=== PATIENT | female | born 1975 | race Caucasian/White ===

== ENCOUNTER 2020-01-01 01:14 | Emergency (ER) | payer BC ==
[~2020-01-01] VITALS: Ht 152.4 cm; Wt 52.3 kg
[~2020-01-01 01:14] MED LIST: CETI-90 PO
[2020-01-01] MEDS ORDERED: ketorolac trometh. 30mg/ml inj. IV ONE (01:30)
[2020-01-01 01:41] LABS: ALBUMIN 3.7 G/DL (3.4-5.0); ANION GAP 6 (8-16); BASOPHILS # (AUTO) 0.2 X10'3 (0-0.2); BASOPHILS % (AUTO) 1.4 % (0-1); BLOOD UREA NITROGEN 15 MG/DL (7-18); BUN/CREATININE RATIO 22.1 (6.6-38.0); CHLORIDE 103 MMOL/L (99-107); CREATININE 0.68 MG/DL (0.40-0.90); EOSINOPHILS # (AUTO) 0.2 X10'3 (0-0.9); EOSINOPHILS % (AUTO) 1.3 % (0-6); GLUCOSE 105 MG/DL (70-104); HEMATOCRIT 30.9 % (35.0-45.0); HEMOGLOBIN 10.6 g/dl (12.0-16.0); LYMPHOCYTES # (AUTO) 1.4 X10'3 (1.1-4.8); LYMPHOCYTES % (AUTO) 10.6 % (21-51); MEAN CORPUSCULAR HEMOGLOBIN 30.7 PG (27.0-31.0); MEAN CORPUSCULAR HGB CONC 34.2 g/dL (33.0-36.5); MEAN PLATELET VOLUME 7.6 FL (7.4-10.4); MONOCYTES # (AUTO) 0.6 X10'3 (0-0.9); MONOCYTES % (AUTO) 4.2 % (2-12); NEUTROPHILS % (AUTO) 82.5 % (42-75); PLATELET COUNT 318 X10'3 (140-440); POTASSIUM 3.5 MMOL/L (3.5-5.1); RED BLOOD COUNT 3.43 X10'6 (4.20-5.60); RED CELL DISTRIBUTION WIDTH 13.6 % (11.5-14.5); SODIUM 131 MMOL/L (135-145); TOTAL CARBON DIOXIDE 21.8 MMOL/L (24-32); WHITE BLOOD COUNT 13.3 X10'3 (4.5-11.0); eGFR > 90 ML/MIN
[2020-01-01 01:46] LABS: HCG SERUM QL POSITIVE
--- NOTE | 2020-01-01 01:49 | NUR ---
ASSISTED LENIN JUAREZ WITH VAGINAL EXAM
[2020-01-01 02:35] LABS: BETA HCG,QUANTITATIVE 3977 mIU/ml
[2020-01-01 03:45] VITALS: BP 107/71
[2020-01-01 03:54] LABS: CLARITY,URINE CLEAR (Clear); COLOR,URINE YELLOW (Yellow); GLUCOSE, URINE NEGATIVE (Neg); KETONES,URINE TRACE mg/dl (Neg); LEUKOCYTE ESTERASE ,URINE TRACE (Neg); NITRITES, URINE POSITIVE (Neg); OCCULT BLOOD,URINE LARGE (Neg); PROTEIN,URINE >=300 mg/dl (Neg); UROBILINOGEN,URINE 0.2 E.U/dL (0.2-1.0)
[2020-01-01 04:03] LABS: UA COLLECTION TYPE NON-SPECIFIED
[2020-01-01 04:05] LABS: RBC,URINE TNTC /HPF (0-2); SQUAMOUS EPITHELIAL CELL,UR MODERATE /LPF (FEW)
[2020-01-01 04:09] LABS: BACTERIA,URINE 1+ /HPF (Neg)
== END 2020-01-01 04:22 | disposition home or self-care (01) ==
LOC: ER 01:14
DX: O03.9 Complete or unspecified spontaneous abortion without complication (principal); Z72.89 Other problems related to lifestyle; Z88.0 Allergy status to penicillin; Z88.2 Allergy status to sulfonamides; Z79.899 Other long term (current) drug therapy
CPT/HCPCS: 36415; 76856; 80048; 81001; 84702; 84703; 85025; 86900; 86901; 87088; 93976; 99284

== ENCOUNTER 2020-08-19 10:22 | Day surgery (SDC) | payer BC ==
[2020-08-12 11:40] LABS: BASOPHILS # (AUTO) 0.1 X10'3 (0-0.2); EOSINOPHILS % (AUTO) 0.5 % (0-6); LYMPHOCYTES # (AUTO) 1.3 X10'3 (1.1-4.8); MEAN CORPUSCULAR HEMOGLOBIN 31.2 PG (27.0-31.0); MEAN CORPUSCULAR VOLUME 92.4 FL (78-98); MONOCYTES # (AUTO) 0.5 X10'3 (0-0.9); NEUTROPHILS # (AUTO) 3.2 X10'3 (1.8-7.7)
[2020-08-12 11:42] LABS: LYMPHOCYTES % (AUTO) 25.9 % (21-51); MEAN CORPUSCULAR HGB CONC 33.7 g/dL (33.0-36.5); MEAN PLATELET VOLUME 7.7 FL (7.4-10.4); MONOCYTES % (AUTO) 9.6 % (2-12); PRE OP HEMATOCRIT 39.8 % (35.0-45.0); PRE OP HEMOGLOBIN 13.4 g/dL (12.0-16.0); PRE OP PLATELET COUNT 346 X10'3 (140-440); RED BLOOD COUNT 4.31 X10'6 (4.20-5.60)
[2020-08-12 11:55] LABS: ALBUMIN 3.8 G/DL (3.4-5.0); ALKALINE PHOSPHATASE 50 IU/L (46-116); BLOOD UREA NITROGEN 12 MG/DL (7-18); BUN/CREATININE RATIO 18.5 (6.6-38.0); CALCIUM 8.7 MG/DL (8.5-10.1); CHLORIDE 104 MMOL/L (99-107); CREATININE 0.65 MG/DL (0.40-0.90); PRE OP ALT 27 U/L (30-65); PRE OP ANION GAP 7 (8-16); PRE OP AST 22 U/L (10-37); PRE OP BILIRUB, TOTAL 0.5 MG/DL (0.0-1.0); PRE OP GLUCOSE 100 MG/DL (70-104); PRE OP POTASSIUM 3.9 MMOL/L (3.4-5.1); PRE OP SODIUM 138 MMOL/L (135-145); TOTAL CARBON DIOXIDE 27.3 MMOL/L (24-32); TOTAL PROTEIN 7.5 G/DL (6.4-8.2); eGFR > 90 ML/MIN
[2020-08-12 12:05] LABS: HCG SERUM QL NEGATIVE
[2020-08-19] VITALS (20 sets, daily range): BP systolic 93–147; BP diastolic 60–106
[~2020-08-19] VITALS: Ht 152.4 cm; Wt 55.9 kg
[~2020-08-19 10:22] MED LIST changes: -CETI-90 PO; +FLUT16SP2 BOTHNARES; +GENTAMICIN IV ONE; +LORA10TA65 PO; +NORMAL SALINE IV ONE; +clindamycin-Cleocin 900mg/D5W 50 ML IV ONE; +famotidine 20mg tablet PO ONE
[2020-08-19] MEDS: ringers solution, lacted 1,000 ML IV SCH ×4 (10:58→23:36)
[2020-08-19 11:56] LABS: CLARITY,URINE CLEAR (Clear); COLOR,URINE YELLOW (Yellow); GLUCOSE, URINE NEGATIVE (Neg); KETONES,URINE NEGATIVE (Neg); LEUKOCYTE ESTERASE ,URINE NEGATIVE (Neg); NITRITES, URINE NEGATIVE (Neg); OCCULT BLOOD,URINE NEGATIVE (Neg); PROTEIN,URINE NEGATIVE (Neg); UROBILINOGEN,URINE 0.2 E.U/dL (0.2-1.0)
[2020-08-19 12:13] LABS: UA COLLECTION TYPE CLN CATCH MIDSTREAM
[2020-08-19] MEDS ORDERED: BUPIVAcaine HCl 0.25%/EPInephrine 1:200,000 inj. 10 ML VIAL ONE (12:27)
[2020-08-19] MEDS ORDERED: BUPIVAcaine/PF 2.5 mg/ml (0.25%) 30ml vial ONE (12:27)
[2020-08-19] MEDS ORDERED: vasoPRESSIN 20 units/ml inj. ONE (12:28)
[2020-08-19] MEDS ORDERED: neomy sulf/polymyxin B sulf. GU irrigation 1ml amp IR ONE (12:28)
[2020-08-19] MEDS ORDERED: scopolamine 1mg/72 hr patch TD ONE (12:35)
[2020-08-19] MEDS ORDERED: sevoflurane 250ml liquid IH ONE (12:45)
--- NOTE | 2020-08-19 12:46 | NUR ---
SCAOPALAMINE PATCH IN [facility] WOULD NOT SCAN APPROPRIATELY.
[2020-08-19] MEDS ORDERED: midazolam 1 mg/ML 2ml injection ONE (12:52)
[2020-08-19] MEDS ORDERED: propofol inj 20 ML IV ONE (13:21)
[2020-08-19] MEDS ORDERED: fentaNYL /PF 50mcg/ml 5ml ampule ONE (13:21)
[2020-08-19] MEDS ORDERED: LIDOcaine 2% (20mg/ml) 5ml vial ONE (13:21)
[2020-08-19] MEDS ORDERED: rocuronium 10mg/ml inj IV ONE (13:21)
[2020-08-19] MEDS ORDERED: dexamethasone sod phosphate 4mg/ml inj. ONE (13:26)
[2020-08-19] MEDS ORDERED: ondansetron/PF 4mg/2ml inj ONE (13:26)
[2020-08-19] MEDS ORDERED: 0.9 % SODIUM CHLORIDE 10 ML VIAL ONE (13:38)
[2020-08-19] MEDS ORDERED: ePHEDrine 50MG/ML INJ. ONE (13:38)
[2020-08-19] MEDS ORDERED: proCHLORperazine 10 MG/2 ml inj IV PRN ×2 (14:05→15:00)
[2020-08-19] MEDS ORDERED: ondansetron/PF 4mg/2ml inj IV PRN ×3 (14:05→15:00)
[2020-08-19] MEDS ORDERED: morphine 4 MG/ML inj SYRINge IV PRN ×2 (14:05→15:00)
[2020-08-19] MEDS ORDERED: ringers solution, lacted 1,000 ML IV SCH ×2 (14:05→15:00)
[2020-08-19] MEDS ORDERED: hydrALAZINE 20mg/ml inj. IV PRN ×2 (14:05→15:00)
[2020-08-19] MEDS ORDERED: labetalol 20mg/4ml (5mg/ml) syringe IV PRN ×2 (14:05→15:00)
[2020-08-19] MEDS ORDERED: morphine 2 MG/ML inj. syringe IV PRN ×2 (14:05→15:00)
[2020-08-19] MEDS ORDERED: acetaminophen 1,000mg/100ml IV 100 ML IV PRN ×2 (14:05→15:00)
[2020-08-19] MEDS ORDERED: meperidine/PF 25mg/ml syringe IV PRN ×6 (14:05→15:00)
[2020-08-19] MEDS ORDERED: neostigmine methylsulfate 1 MG/ML 10ml vial ONE (14:39)
[2020-08-19] MEDS ORDERED: glycopyrrolate 0.2mg/ml inj ONE (14:39)
[2020-08-19] MEDS ORDERED: LORazepam 1 MG tablet PO PRN (14:55)
[2020-08-19] MEDS ORDERED: temazepam 15mg capsule PO PRN (14:55)
[2020-08-19] MEDS ORDERED: HYDROcodone/acetaminophen 10/325mg tab PO PRN (14:55)
[2020-08-19] MEDS ORDERED: ketorolac trometh. 30mg/ml inj. IV PRN (14:55)
[2020-08-19] MEDS ORDERED: diphenhydrAMINE 50 mg/ml inj IV PRN (14:55)
[2020-08-19] MEDS ORDERED: magnesium hydroxide 30ml (MOM) UD suspension PO PRN (14:55)
[2020-08-19] MEDS ORDERED: metoclopramide 5 mg/ml inj IV PRN (14:55)
[2020-08-19] MEDS ORDERED: LORazepam 2 mg/ml vial IV PRN (14:55)
[2020-08-19] MEDS ORDERED: normal saline 500ml IV soln 500 ML IV PRN (14:55)
--- NOTE | 2020-08-19 14:59 | NUR ---
Received from OR via SURGICAL BED , accompanied by Anesthesiologist JET and report given by Anesthesiolgist. PATIENT WITH 20G PIV IN LEFT URE RUNNING LR AT 100. PATIENT WITH 3 ABDOMINAL LAP SITES THAT ARE CDI. VSS. PATIENT WITH CLEAR URINE PRESENT IN CATHETER. SCDS DONNED. VSS. ELINA PAD IN PLACE. Addendum: 08/19/20 at 1512 by Davonte Preciado RN, RN Amended: Links added.
--- NOTE | 2020-08-19 15:58 | NUR ---
Patient in room . I have received report from TRAM Arauz and had the opportunity to ask questions and assume patient care waiting for patient to arrive to room 4024b.
--- NOTE | 2020-08-19 15:59 | NUR ---
CARE TURNED OVER TO TRAM ALFARO WHO WAS PRESENT TO ASSESS AND ACCEPT PATIENT IN ROOM 4024B. ONE BAG OF BELONGINGS SENT WITH PATIENT. Addendum: 08/19/20 at 1622 by Davonte Mazariegos - TRAM UGALDE Amended: Links added.
--- NOTE | 2020-08-19 16:16 | NUR ---
Received patient to room 4024B via bed accompanied by TRAM Arauz. Patient A&O on RA c/o abd and bladder discomfort as well as right shoulder. Per patient and TRAM Arauz villela catheter causing discomfort and pain. Patient requesting to have villela catheter removed as she feels like she cannot "relieve" herself. Davonte stated he will inform Dr. Foley. When assessing patient villela catheter was secured in stat lock but had been twisted upside down pinched off. Villela catheter adjusted and secured in villela catheter stat lock correctly. Patient has x3 lap sites with dermabond cdi, no drainage on slava pad. Post op vitals initiated and VSS. Oriented patient to room and call light. Call light placed within patient's reach and bed is low and locked. Will continue to monitor.
--- NOTE | 2020-08-19 16:24 | NUR ---
Received call back from TRAM Arauz that Dr. Og mclaughlin for tika to be dc and straight mike PRN.
--- NOTE | 2020-08-19 16:40 | NUR ---
200ml urine in villela catheter drainage bag drained. Villela catheter dc'd with no issues. Patient tolerated well.
--- NOTE | 2020-08-19 18:24 | NUR ---
Problems reprioritized. Patient report given, questions answered & plan of care reviewed with TRAM Ritter.
--- NOTE | 2020-08-19 18:37 | NUR ---
Patient in room ORTHO 4024. I have received report from Celi UGALDE and had the opportunity to ask questions and assume patient care.
[2020-08-19] MEDS: docusate sod 100mg capsule PO SCH (19:47)
[2020-08-19] MEDS: HYDROcodone/acetaminophen 10/325mg tab PO PRN (20:29)
[2020-08-20 02:00] VITALS: BP 103/75
[2020-08-20] MEDS: HYDROcodone/acetaminophen 10/325mg tab PO PRN ×2 (03:10→10:06)
[2020-08-20 06:00] VITALS: BP 116/67
[2020-08-20 06:06] LABS: BASOPHILS % (AUTO) 0 % (0-1); EOSINOPHILS % (AUTO) 0 % (0-6); HEMATOCRIT 33.8 % (35.0-45.0); HEMOGLOBIN 11.5 g/dl (12.0-16.0); LYMPHOCYTES # (AUTO) 0.7 X10'3 (1.1-4.8); LYMPHOCYTES % (AUTO) 5.7 % (21-51); MEAN CORPUSCULAR HEMOGLOBIN 31.5 PG (27.0-31.0); MEAN CORPUSCULAR VOLUME 92.6 FL (78-98); MEAN PLATELET VOLUME 8.5 FL (7.4-10.4); MONOCYTES # (AUTO) 0.8 X10'3 (0-0.9); MONOCYTES % (AUTO) 6.1 % (2-12); NEUTROPHILS # (AUTO) 11.6 X10'3 (1.8-7.7); NEUTROPHILS % (AUTO) 88.2 % (42-75); PLATELET COUNT 336 X10'3 (140-440); RED BLOOD COUNT 3.65 X10'6 (4.20-5.60); RED CELL DISTRIBUTION WIDTH 12.5 % (11.5-14.5); WHITE BLOOD COUNT 13.1 X10'3 (4.5-11.0)
[2020-08-20 06:17] LABS: ALBUMIN 3.5 G/DL (3.4-5.0); ANION GAP 11 (8-16); BLOOD UREA NITROGEN 8 MG/DL (7-18); BUN/CREATININE RATIO 8.5 (6.6-38.0); CALCIUM 8.2 MG/DL (8.5-10.1); CHLORIDE 103 MMOL/L (99-107); CREATININE 0.94 MG/DL (0.40-0.90); GLUCOSE 118 MG/DL (70-104); POTASSIUM 3.9 MMOL/L (3.5-5.1); SODIUM 139 MMOL/L (135-145); TOTAL CARBON DIOXIDE 25.2 MMOL/L (24-32); eGFR 64 ML/MIN
--- NOTE | 2020-08-20 06:26 | NUR ---
Problems reprioritized. Patient report given, questions answered & plan of care reviewed with Ivet UGALDE.
--- NOTE | 2020-08-20 06:39 | NUR ---
Patient in room ORTHO 4024. I have received report from Riya UGALDE and had the opportunity to ask questions and assume patient care.
[2020-08-20] MEDS: ringers solution, lacted 1,000 ML IV SCH (06:55)
[2020-08-20] MEDS: docusate sod 100mg capsule PO SCH (07:57)
[2020-08-20] MEDS ORDERED: enoxaparin 40mg/0.4ml syringe SQ SCH (08:00)
[2020-08-20] MEDS ORDERED: fluticasone nasal spray 16GM bottle NS SCH (08:00)
[2020-08-20] MEDS ORDERED: loratadine 10mg tablet PO SCH (08:00)
[2020-08-20 10:00] VITALS: BP 133/50
[2020-08-20] MEDS ORDERED: simethicone 80mg chew tab PO ONE (10:25)
--- NOTE | 2020-08-20 12:50 | NUR ---
Pt Dc to home with lucia. Pt is A * O x4 and in mild gas pain. Pt verbalizes understanding of all DC orders and understands the importance of following up with Dr Foley within two weeks. Pt is in stable condition and is having no pain on abdomen as of right now. pain is gas pain only. Stringer is working well for her. Pt's iv cath intact,pt packed all of her belongings and wanted to walk out to the front. pt is doing well.
== END 2020-08-20 12:50 | disposition home or self-care (01) ==
LOC: ORTHO 4S 10:22 → PAS 10:22
PROVIDERS: ATTEND Obstetrics & Gynecology Obstetrics
DX: N87.9 Dysplasia of cervix uteri, unspecified (principal); D25.9 Leiomyoma of uterus, unspecified; Z79.899 Other long term (current) drug therapy; Z98.890 Other specified postprocedural states; Z88.2 Allergy status to sulfonamides; Z88.0 Allergy status to penicillin; Z72.89 Other problems related to lifestyle; Z87.891 Personal history of nicotine dependence
CPT/HCPCS: 36415; 58552; 71046; 80048; 80053; 81003; 82948; 84703; 85025; 86885; 86900; 86901; 93005; J0780; J1100; J1580; J1885; J2001; J2175; J2250; J2405; J2704; J2710; J3010; J3490; J7120; A4314; A4618; A7000; G0378; J1650

== ENCOUNTER 2022-09-12 12:49 | Emergency (ER) | payer BC ==
[~2022-09-12] VITALS: Ht 152.4 cm; Wt 59.0 kg
[~2022-09-12 12:49] MED LIST changes: -GENTAMICIN IV ONE; -NORMAL SALINE IV ONE; -clindamycin-Cleocin 900mg/D5W 50 ML IV ONE; -famotidine 20mg tablet PO ONE
[2022-09-12 13:35] LABS: URINE HCG NEGATIVE (NEG)
[2022-09-12 13:41] LABS: BASOPHILS # (AUTO) 0.1 X10'3 (0-0.2); BASOPHILS % (AUTO) 1.2 % (0-1); EOSINOPHILS % (AUTO) 0.1 % (0-6); HEMATOCRIT 37.8 % (35.0-45.0); HEMOGLOBIN 12.8 g/dl (12.0-16.0); LYMPHOCYTES # (AUTO) 1.4 X10'3 (1.1-4.8); LYMPHOCYTES % (AUTO) 17.4 % (21-51); MEAN CORPUSCULAR HEMOGLOBIN 31.4 PG (27.0-31.0); MEAN CORPUSCULAR HGB CONC 33.8 g/dL (33.0-36.5); MEAN CORPUSCULAR VOLUME 93.1 FL (78-98); MONOCYTES # (AUTO) 0.6 X10'3 (0-0.9); MONOCYTES % (AUTO) 7.1 % (2-12); NEUTROPHILS # (AUTO) 5.8 X10'3 (1.8-7.7); NEUTROPHILS % (AUTO) 74.2 % (42-75); PLATELET COUNT 342 X10'3 (140-440); RED BLOOD COUNT 4.06 X10'6 (4.20-5.60); RED CELL DISTRIBUTION WIDTH 13.8 % (11.5-14.5); WHITE BLOOD COUNT 7.8 X10'3 (4.5-11.0)
[2022-09-12 13:45] LABS: CLARITY,URINE CLEAR (Clear); COLOR,URINE YELLOW (Yellow); GLUCOSE, URINE NEGATIVE (Neg); KETONES,URINE 40 mg/dl (Neg); LEUKOCYTE ESTERASE ,URINE NEGATIVE (Neg); NITRITES, URINE NEGATIVE (Neg); OCCULT BLOOD,URINE NEGATIVE (Neg); PH,URINE 5.5 (4.8-8.0); PROTEIN,URINE NEGATIVE (Neg); UROBILINOGEN,URINE 0.2 E.U/dL (0.2-1.0)
[2022-09-12 13:49] LABS: UA COLLECTION TYPE CLN CATCH MIDSTREAM
[2022-09-12 13:51] LABS: ALANINE AMINOTRANSFERASE 50 U/L (12-78); ALBUMIN 3.9 G/DL (3.4-5.0); ALKALINE PHOSPHATASE 66 IU/L (46-116); ANION GAP 13 (8-16); ASPARTATE AMINO TRANSFERASE 38 U/L (10-37); BILIRUBIN,TOTAL 0.4 MG/DL (0.1-1.0); BLOOD UREA NITROGEN 15 MG/DL (7-18); BUN/CREATININE RATIO 19.5 (10.0-20.0); CALCIUM 9.3 MG/DL (8.5-10.1); CHLORIDE 96 MMOL/L (99-107); CREATININE 0.77 MG/DL (0.40-0.90); GLUCOSE 88 MG/DL (70-104); LIPASE 111 U/L (73-393); POTASSIUM 3.4 MMOL/L (3.5-5.1); SODIUM 132 MMOL/L (135-145); TOTAL CARBON DIOXIDE 23.2 MMOL/L (24-32); TOTAL PROTEIN 7.8 G/DL (6.4-8.2); eGFR 80 ML/MIN
--- NOTE | 2022-09-12 14:37 | NUR ---
ULTRASOUND AT BEDSIDE
[2022-09-12] MEDS ORDERED: DICY10CA88 PO (14:59)
[2022-09-12 15:17] VITALS: BP 163/100
== END 2022-09-12 15:18 | disposition home or self-care (01) ==
LOC: ER 12:50
DX: R10.31 Right lower quadrant pain (principal); R11.0 Nausea; Z90.49 Acquired absence of other specified parts of digestive tract; Z88.0 Allergy status to penicillin; Z88.2 Allergy status to sulfonamides; Z79.899 Other long term (current) drug therapy
CPT/HCPCS: 36415; 76856; 80053; 81003; 81025; 83690; 85025; 93976; 99284

== ENCOUNTER 2024-10-27 10:42 | Inpatient (IN) | payer BC ==
[~2024-10-27] VITALS: Ht 152.4 cm; Wt 52.7 kg
[2024-10-27 11:23] LABS: MEAN PLATELET VOLUME 8.4 FL (7.4-10.4); RED CELL DISTRIBUTION WIDTH 17.5 % (11.5-14.5)
[2024-10-27 11:25] LABS: URINE HCG NEGATIVE (NEG)
[2024-10-27 11:26] LABS: LEUKOCYTE ESTERASE ,URINE NEGATIVE (Neg); NITRITES, URINE NEGATIVE (Neg); OCCULT BLOOD,URINE MODERATE (Neg)
[2024-10-27 11:31] LABS: UA COLLECTION TYPE CLN CATCH MIDSTREAM
[2024-10-27 11:37] LABS: FINE GRANULAR CAST 0-3 /LPF (NEGATIVE); SQUAMOUS EPITHELIAL CELL,UR FEW /LPF (FEW)
[2024-10-27 11:37] LABS: CREATININE 1.01 MG/DL (0.40-0.90); eCRCL 48 ML/MIN; eGFR 58 ML/MIN
[2024-10-27 11:40] LABS: MUCUS STRANDS FEW /LPF (Neg)
[2024-10-27] MEDS: ondansetron/PF 4mg/2ml inj IV ONE (11:49)
[2024-10-27] MEDS: morphine 4 MG/ML inj SYRINge IV ONE (11:49)
[2024-10-27 12:17] LABS: TOTAL CARBON DIOXIDE 12.8 MMOL/L (24-32)
[2024-10-27] MEDS: potassium Cl 20 mEq SR tablet PO STA (13:33)
[2024-10-27] MEDS: POTASSIUM CHLORIDE 20 MEQ/15 ML oral solution PO ONE (13:41)
[2024-10-27] MEDS: potassium Cl 40MEQ/1/2NS 520ml 520 ML IV ONE (14:00)
--- NOTE | 2024-10-27 14:04 | Physician Documentation ---
History of Present Illness ~ Chief Complaint: Abdominal Pain Stated Complaint: N/V Time Seen by MD: 13:48 Primary Medical Doctor: NEHA Source: patient Mode of Arrival: Ambulatory Exam Limitations: no limitations HPI Chief Complaint: Nausea and vomiting, no bowel movement Caveat: None Independent Historians: None History of Present Illness: Patient is a 49-year-old woman who comes in complaining of nausea and vomiting that began Sunday. However patient states that she has not eaten anything since . Patient complains of severe nausea and vomiting and diffuse abdominal pain. She describes the pain as burning in the upper abdomen and cramps in the lower abdomen. Patient denies any bowel movement for 11 days since she had a colonoscopy. Patient denies any fever. Patient drinks alcohol daily and stopped cold turkey on Sunday. Review of systems: All systems were reviewed and are negative except for what is indicated in the history of present illness. Past Medical History: Alcoholism Past Surgical History: Colonoscopy 11 days ago Social History: Daily alcohol use, none since Sunday. Tobacco use, no drug use Medications: Reviewed as documented Nursing Notes Allergies: Reviewed as documented in Nursing Notes Medication Reconciliation Allergies: Coded Allergies: Penicillins (Verified Allergy, Unknown, 10/27/24) Sulfa (Sulfonamide Antibiotics) (Verified Allergy, Unknown, 10/27/24) buspirone (Verified Allergy, Unknown, 10/27/24) Scheduled Fluticasone Propionate (Flonase), 2 SPRAYS BOTHNARES DAILY, (Reported) Loratadine (Claritin), 1 TAB PO DAILY, (Reported) Past Medical History Past Medical History: *RENAL/* Past Surgical History: hysterectomy Other Past Family History: Mother: mitral valve prolapse Alcohol Use: Heavy Drug Use: none Lives with: Family Lives In: Home Review of Systems All Other Systems at this time: Reviewed and Negative ROS Patient denies any other acute symptoms other than above. All other systems are negative Physical Exam Vital Signs: RN Vital Signs have been reviewed: Yes, Temperature: 97.4, Source: Temporal, Heart Rate: 90, Respiratory Rate: 14, BP: 132/96, Pulse Oximetry: 97, Weight: 52.730 Oxygen Flow Rate: 0 Pulse Oximetry Reflects: adequate oxygenation Physical Exam General Appearance: Mild distress, acutely ill-appearing HEENT: Normal OP, dry oral mucosa, PERRL, EOMI Neck: supple, normal ROM, trachea midline Pulmonary: No respiratory distress, CTA, BS equal Cardiac: RRR, no murmur, rub or gallop, GI: nondistended, soft, mild diffuse tenderness, no right upper quadrant tenderness, normal bowel sounds, no guarding, no rebound Extremities: normal ROM, no swelling, non-tender Skin: intact, dry, warm, no rashes Neuro: AAOx3, speech is clear, no focal motor weakness Psych: normal affect, good eye contact, no apparent hallucination, normal speech Progress Results/Orders Results/Orders Orders - THEODORA REILYL MD Cult Urine + [facility] Ct (10/27/24 11:41) Potassium Cl 40meq/1/2ns 520ml ([place] (10/27/24 14:00) Page Hospitalist (10/27/24 13:56) Fill Out Med Reconciliation (10/27/24 13:56) Ct Abdomen Pelvis (10/27/24 14:30) Completed Orders - THEODORA REILLY MD Hcg, Ur Ql (10/27/24 10:51) Cbc/Diff (10/27/24 10:51) BMP (10/27/24 10:51) Lipase (10/27/24 10:51) CMP (10/27/24 10:51) Ua W/Microscopic, Cult If Ind (10/27/24 11:00) Morphine 4mg/Ml Inj. (Morphine Inj.) (10/27/24 11:45) Ondansetron Inj. (Zofran 4mg/2ml Vial) (10/27/24 11:45) Potassium Cl Sr Tablet (K-Dur Tablet) (10/27/24 13:05) Potassium Cl 20meq/15ml Oral (Potassium (10/27/24 13:35) Ringers Solution, Lacted (Lactated Ringe (10/27/24 14:00) Ct Abdomen Pelvis (10/27/24 14:30) Electrocardiogram (10/27/24 14:01) Medications Received in ER Medications (Trade) Dose Ordered Sig/Marques Route PRN Reason Start Time Stop Time Status Last Admin Dose Admin (morphine inj.) 4 mg ONCE ONCE IV 10/27/24 11:45 10/27/24 11:46 DC 10/27/24 11:49 4 MG (Zofran 4mg/2ml vial) 4 mg ONCE ONCE IV 10/27/24 11:45 10/27/24 11:46 DC 10/27/24 11:49 4 MG (POTASSIUM Cl 20mEq/15mL oral solution) 40 meq ONCE ONCE PO 10/27/24 13:35 10/27/24 13:36 DC 10/27/24 13:41 40 MEQ (lactated ringers solution) 1,000 ml ONCE ONCE IV 10/27/24 14:00 10/27/24 14:11 DC 10/27/24 14:09 1,000 ML Vital Signs 10/27/24 10/27/24 10/27/24 10/27/24 10:48 11:43 11:49 12:50 Temp 97.4 97.4 Pulse 96 90 Resp 16 15 16 14 B/P (MAP) 164/115 132/96 (108) Pulse Ox 98 97 O2 Flow Rate 0 0 Laboratory Tests Test 10/27/24 11:00 10/27/24 11:10 Urine Specimen Description Cln catch midstream Urine Color Yellow Urine Clarity Clear Urine pH 6.0 Urine Specific [place] >=1.030 Urine Protein 100 H Urine Glucose (UA) Negative Urine Ketones >=80 Urine Occult Blood Moderate H Urine Nitrite Negative Urine Bilirubin Moderate Urine Urobilinogen 1.0 Urine Leukocyte Esterase Negative Urine RBC 0-2 Urine WBC 5-10 H Urine Squamous Epithelial Cells Few Urine Bacteria Few Urine Hyaline Casts 5-10 Urine Fine Granular Casts 0-3 Urine Mucus Few Urine Culture Indicated Indicated Volume Urine Centrifuged 10 ml Urine HCG, Qualitative Negative Urine Comment White Blood Count 6.4 Red Blood Count 3.80 L Hemoglobin 13.5 Hematocrit 39.1 Mean Corpuscular Volume 102.8 H Mean Corpuscular Hemoglobin 35.6 H Mean Corpuscular Hemoglobin Concent 34.6 Red Cell Distribution Width 17.5 H Platelet Count 185 Mean Platelet Volume 8.4 Neutrophils (%) (Auto) 67.2 Lymphocytes (%) (Auto) 17.9 L Monocytes (%) (Auto) 13.3 H Eosinophils (%) (Auto) 0.2 Basophils (%) (Auto) 1.4 H Neutrophils # (Auto) 4.3 Lymphocytes # (Auto) 1.1 Monocytes # (Auto) 0.8 Eosinophils # (Auto) 0.0 Basophils # (Auto) 0.1 CBC Comment Sodium Level 136 Potassium Level 2.4 *L Chloride Level 92 L Carbon Dioxide Level 12.8 *L Anion Gap 31 H Blood Urea Nitrogen 6 L Creatinine 1.01 H Estimated GFR/1.73 m2 58 BUN/Creatinine Ratio 5.9 L Glucose Level 163 H Lactic Acid Level 1.4 Calcium Level 9.6 Total Bilirubin 1.9 H Aspartate Amino Transf (AST/SGOT) 286 H Alanine Aminotransferase (ALT/SGPT) 85 H Alkaline Phosphatase 189 H Total Protein 9.1 H Albumin 4.5 Globulin 4.6 H Albumin/Globulin Ratio 1.0 L Lipase 60 Chemistry Comments Microbiology Date/Time Source Procedure Growth Status 10/27/24 11:41 Urine Clean Catch Midstream Urine Culture - Preliminary Culture received. Resulted Medical Decision Making Findings Differential diagnosis includes but is not limited to: Bowel obstruction, alcoholic ketoacidosis, dehydration, acute kidney injury, electrolyte abnormalities EKG independent interpretation: Performed at 8:06 p.m. p.m.. Laboratory data independent interpretation: CBC: Unremarkable CMP: Hypokalemia of 2.4, low bicarb 12.8, elevated creatinine of 1.01, mild hyperglycemia 163, elevated LFTs total bili 1.9, AST 286, ALT 85, alk-phos 189 Toxicology: Urinalysis: Ketones greater than 80, RBC 0-2, WBC 5-10, few epithelial cells, few bacteria test: Negative Emergency department course/medical decision-making: Patient is a 49-year-old woman that drinks daily and went cold turkey Sunday. She presents with abdominal pain, nausea and vomiting. Patient has also had no bowel movement for 11 days. Patient appears dehydrated. She is given 1 L of LR. Patient is also hypokalemic. Patient is given oral 40 mEq p.o. along with 10 mEq IV. Patient is given morphine 4 mg IV for her abdominal pain and Zofran 4 mg IV for her nausea and vomiting. Recommend admission for the patient's severe dehydration and hypokalemia. Consultation/communications: To 10:00 p.m.: Case discussed with the resident hospitalist Sean. He will evaluate the patient for admission. Departure Time of Disposition: 13:59 Admission Level of Care: Med/Surg with Tele Impression: Primary Impression: Alcoholic ketoacidosis Additional Impressions: Dehydration Alcoholic hepatitis Qualified Codes: K70.10 - Alcoholic hepatitis without ascites Hypokalemia Referrals: NO PRIMARY CARE PROVIDER (PCP) Education Educated: Patient Educated regarding: diagnosis, treatment Signature Scribe Signature: . Attestation: . THEODORA REILLY MD Oct 27, 2024 14:04
--- NOTE | 2024-10-27 14:08 | ELECTROCARDIOGRAPH REPORT ---
[facility] Test Date: 2024-10-27 Test Time: 14:06:35 Pat Name: REBECCA CARDENAS Department: [facility]-ER Patient ID: [facility]-[id number] Room: Gender: F [employer]: : 1975 Requested By: THEODORA REILLY Order Number: [id number] Reading MD: Measurements Intervals [place] Rate: 76 P: 39 MO: 111 QRS: 25 QRSD: 91 T: 58 QT: 401 QTc: 451 Interpretive Statements Sinus rhythm Borderline short MO interval Consider left ventricular hypertrophy Please click the below link to view image of tracing.
[2024-10-27] MEDS: ringers solution, lactated 1000ml IV soln IV ONE (14:09)
[2024-10-27] MEDS ORDERED: magnesium sulf-water 2g/50mL 50 ML IV PRN (14:45)
[2024-10-27] MEDS ORDERED: metoclopramide 5 mg/ml inj IV PRN (14:45)
[2024-10-27] MEDS ORDERED: magnesium Cl slow-release 64mg tablet PO PRN (14:45)
[2024-10-27] MEDS ORDERED: magnesium sulf-water 4G/100mL 100 ML IV PRN (14:45)
[2024-10-27] MEDS ORDERED: bisacodyl 10mg suppository rectal RC PRN (14:45)
[2024-10-27] MEDS ORDERED: haloperidol lactate 5mg/ml inj IM PRN (14:55)
--- NOTE | 2024-10-27 15:11 | HISTORY AND PHYSICAL-Residence ---
History & Physical Providers to CC Resident Creating Document: STEFANIEANNMARIEANDRIAMYNOR ~ History of Present Illness Primary Medical Doctor: NEHA Reason for Admit\Complaint: Persistent nausea and vomiting History of Present Illness This is a 49-year-old female patient with a past medical history of alcohol use disorder, hypertension, prediabetes, presented to the emergency department for nausea and vomiting for the last four days associated with poor oral intake and diffuse abdominal pain. The patient had a screening colonoscopy 10 days ago and didn't have any bowel movement thereafter, but is passing gas. She drinks alcohol daily, last drink three days ago. Patient also complains of weakness and shortness of breath with exertion, denies fever, cough, chest pain or any urinary symptoms reported. Allergies: Coded Allergies: Penicillins (Verified Allergy, Unknown, 10/27/24) Sulfa (Sulfonamide Antibiotics) (Verified Allergy, Unknown, 10/27/24) buspirone (Verified Allergy, Unknown, 10/27/24) Home Medications Home Medications Active Reported Flonase (Fluticasone Propionate) 16 Gm [place].susp 2 Sprays BOTHNARES DAILY Claritin (Loratadine) 10 Mg Tablet 1 Tab PO DAILY Past Medical History Past Medical History Alcohol use disorder Hypertension Prediabetes Past Surgical History Surgical History Comment Hysterectomy Rhinoplasty Past Social History Smoking: Quit greater than 1 year (Patient quit smoking 15 years ago. She smoked only socially before.) Alcohol Use: Heavy (Patient drinks three doses of vodka daily) Drug Use: None Lives with: Family Lives In: Home Occupation: employed ROS All Other Systems: Reviewed and Negative Constitutional: Reports: malaise, weakness Eyes: Reports: no symptoms reported ENT: Reports: no symptoms reported Respiratory: Reports: SOB with exertion Cardiovascular: Reports: no symptoms reported Gastrointestinal: Reports: abdominal pain, nausea, vomiting Genitourinary: Reports: no symptoms reported Female Genitalia: Reports: no reported symptoms Neurological: Reports: no symptoms reported Integumentary: Reports: no symptoms reported Allergic/Immunologic: Reports: no symptoms reported Hematologic/Lymphatic: Reports: no symptoms reported Endocrine: Reports: no symptoms reported Psychiatric: Reports: no symptoms reported Exam Vitals: Vital Signs Date Time Temp Pulse Resp B/P (MAP) Pulse Ox O2 Delivery O2 Flow Rate FiO2 10/27/24 12:50 97.4 90 14 132/96 (108) 97 0 General: General: Awake and Alert, no acute distress. HEENT: Conjunctiva pink, Sclera clear, Mucus Membranes dry Neck: Supple without masses and tenderness. Resp: Unlabored. Lungs clear to auscultation bilaterally. Heart: Regular Rate and rhythm, normal S1 and S2 without murmur, rub or gallop. Abdomen: Soft, mildly tender in the periumbilical region, reduced bowel sounds, no guarding or rebound, no organomegaly noted Extremities: No cyanosis,clubbing or edema. Skin: Warm and Dry. Rectal exam: No external changes, normal anal tone, no fecal impaction, no mass noted Diagnostic Data Last Recorded Lab Results: 10/27/24 1110 10/27/24 1110 Advance Care Planning Advanced Care plannin - 30 Minutes (Patient wishes to be full code) Additional Plan Assessment This is a 49-year-old female patient with a past medical history of alcohol use disorder, hypertension and prediabetes, admitted for nausea, vomiting, abdominal pain and constipation for 10 days. Alcoholic ketoacidosis, severe dehydration Alcohol use disorder Constipation, normal rectal exam, no signs of SBO CO2 12.8, Cl 92, Anion Gap 31 Lactic acid 1.4 AST 286, ALT 85 , Bilirrubin 1.9, alkaline phosphatase 189 Ordered ABG Received 1000 mL of lactated ringer the ER Started on LR at 125 mL/hr. Plan to reduce once tolerating oral diet. Social service and substance use navigator consulted Mild alcohol withdrawal protocol placed Uncomplicated pyelonephritis UA: 5-10 wbc, occult blood moderate CT abdomen: Moderate volume stool in the colon. Normal appendix. Bilateral perinephric edema / stranding. Correlate for urinary tract infection / pyelonephritis. Severe hepatic steatosis. Hepatomegaly. Started on ceftriaxone 1 g daily Ordered blood cultures Pending C-reactive protein and procalcitonin Severe hypokalemia Potassium 2.4, secondary to vomiting and poor oral intake Normal EKG Replacement per protocol Repeat K after replacement Acute kidney injury 2/2 prerenal nephropathy Creatinine 1.01 (baseline 0.77), BUN 6 Continue IV fluids Hypertension and prediabetes Patient denies any home medication Ordered A1c Code Status: Full code DVT prophylaxis: Heparin Analgesia/sedation: Morphine Line/tube: PIV GI prophylaxis: Pantoprazole Nutrition: Full liquid diet Physical therapy: Yes Prognosis: Guarded Disposition: Admit to surgical floor. Date of Service: Oct 27, 2024 Billing Provider: SHANTE CHAN MD Common Visit Codes: 23258-DUMRUYM INP/OBS CARE (HIGH) Secondary Visit Codes: 39596-VEVZBOHM CARE PLAN 30 MINUTES ANDRIA MIRELES, RES Oct 27, 2024 15:11 SHANTE CHAN MD Oct 29, 2024 06:19
--- NOTE | 2024-10-27 15:18 | RADIOLOGY REPORT ---
Indication: Abdominal Pain Technique: CT axial images of the abdomen and pelvis are obtained without contrast. Coronal and sagit luis reformats were obtained. Radiation Dose Information: CTDI volume is 9 mGy. Dose-length product is 433 mGy*cm Comparison: None FINDINGS: There is limited interpretation of the abdomen and pelvis without administration of intravenous contr ast. Lung bases demonstrate no pleural effusion. Adrenal glands, spleen, pancreas unremarkable in shape. Severe hepatic steatosis. Hepatomegaly. No CT evidence for cholelithiasis. Bilateral perinephric stranding. No nephrolithiasis. Stomach is partially distended. Small bowel loops are normal in caliber. Moderate volume stool in the colon. Normal appendix. Abdominal aortic atherosclerotic disease and tortuosity. Bladder distended. No free pelvic fluid. No inguinal lymphadenopathy. No acute osseous abnormality. [id number] thoracolumbar degenerative disc disease. IMPRESSION: Limited evaluation without contrast. Bilateral perinephric edema / stranding. Correlate for urinary tract infection / pyelonephritis. Severe hepatic steatosis. Hepatomegaly. Other findings as described.
[2024-10-27 15:27] LABS: ETHANOL < 10 MG/DL (<10)
--- NOTE | 2024-10-27 15:37 | RADIOLOGY REPORT ---
Chest x-ray Technique: PA and lateral views Comparison: 08/12/2020 CLINICAL INDICATION: sob with exertion FINDINGS: Heart size is normal. No infiltrates or effusions. No bony thoracic abnormalities. IMPRESSION: 1. Normal chest x-ray.
[2024-10-27 15:56] LABS: ABG BASE EXCESS -9.7 mmol/L (-2.0-3.0); ABG HCO3 13.5 mmol/L (21.0-28.0); ABG OXYGEN SATURATION 97.5 % (94.0-98.0); ABG PCO2 (T) 22.8 mmHg (32.0-45.0); ABG PH (T) 7.388 (7.350-7.450); ABG PO2 (T) 103.7 mmHg (83.0-108.0); ALLEN'S TEST POSITIVE; FCOHb 0.3 % (0.5-1.5); FHHb 2.5 % (0.0-5.0); FIO2 21.0 mmHg/%; FMetHb 0.3 % (0.0-1.5); FO2Hb 96.9 % (94.0-98.0); MODE ROOM AIR; PATIENT TEMPERATURE 36.6; TOTAL HEMOGLOBIN 12.6 G/dl (12.0-16.0)
[2024-10-27] MEDS: ondansetron/PF 4mg/2ml inj IV PRN (16:33)
[2024-10-27] MEDS: ringers solution, lacted 1,000 ML IV SCH (17:14)
[2024-10-27 18:00] VITALS: PULSE 73; RESP 18; TEMP 98.2; O2SAT 97
[2024-10-27 18:01] VITALS: BP 128/71; PULSE 73; RESP 18; TEMP 98.2; O2SAT 97
[2024-10-27 20:00] VITALS: RESP 20; O2SAT 96
[2024-10-27] MEDS: K and/or MAG REPLACEMENT MC SCH (20:54)
[2024-10-27] MEDS: CefTRIAXone/D5W-Rocephin 1gm 50 ML IV SCH (20:59)
[2024-10-27] MEDS: docusate sod 100mg capsule PO SCH (20:59)
[2024-10-27] MEDS: thiamine 100mg/ml 2ml inj. IV SCH (20:59)
[2024-10-27] MEDS: mag hydrox/Alum hydrox/simeth 30ml oral suspension PO PRN (21:45)
[2024-10-27 22:00] VITALS: BP 157/91; PULSE 76; RESP 18; TEMP 97.5; O2SAT 100
[2024-10-28] MEDS: POTASSIUM BICARB 20meq eff tab 20 MEQ TABLET.EFF PO SCH (03:02)
[2024-10-28 05:40] LABS: MEAN PLATELET VOLUME 8.5 FL (7.4-10.4); RED CELL DISTRIBUTION WIDTH 17.3 % (11.5-14.5)
[2024-10-28 05:56] LABS: INR 1.1 INR
[2024-10-28 06:00] VITALS: BP 139/96; PULSE 94; RESP 14; TEMP 96.9; O2SAT 99
[2024-10-28 06:23] LABS: CREATININE 0.98 MG/DL (0.40-0.90); TOTAL CARBON DIOXIDE 23.8 MMOL/L (24-32); eCRCL 49 ML/MIN; eGFR 60 ML/MIN
[2024-10-28 06:37] LABS: PHOSPHORUS 0.8 MG/DL (2.3-4.5)
[2024-10-28 08:00] VITALS: RESP 18; O2SAT 97
[2024-10-28] MEDS: folic acid 1mg/0.2ml inj IV SCH (09:14)
[2024-10-28] MEDS: enoxaparin 40mg/0.4ml syringe SUBCUT SCH (09:15)
[2024-10-28] MEDS: magnesium hydroxide 30ml (MOM) UD suspension PO PRN (09:34)
[2024-10-28 10:00] VITALS: BP 129/91; PULSE 84; RESP 17; TEMP 97.9; O2SAT 97
[2024-10-28] MEDS ORDERED: metoclopramide 5 mg/ml inj IV PRN (10:40)
[2024-10-28] MEDS: sodium phosphate inj. 15 MMOL in normal saline 250ml IV soln 250 ML IV ONE (11:07)
--- NOTE | 2024-10-28 12:38 | PROGRESS NOTE- Residence ---
Progress Note - Resident Providers to CC Resident Creating Document: ANDRIA MIRELES RES ~ Antibiotic Timeout Antibiotic Ordered?: No Subjective Patient is seen and examined at bedside. Patient tolerated oral diet today, nausea and vomiting is controlled since yesterday. She did not have any bowel movement but is passing gas. No other symptoms reported. Objective Vital Signs Date Time Temp Pulse Resp B/P (MAP) Pulse Ox O2 Delivery O2 Flow Rate FiO2 10/28/24 10:34 16 10/28/24 10:00 97.9 84 129/91 (104) 97 Room Air 10/27/24 12:50 0 Result Diagram: 10/28/2440610/28/24406 General: Awake and Alert, no acute distress. HEENT: Conjunctiva pink, Sclera clear, Mucus Membranes dry Neck: Supple without masses and tenderness. Resp: Unlabored. Lungs clear to auscultation bilaterally. Heart: Regular Rate and rhythm, normal S1 and S2 without murmur, rub or gallop. Abdomen: Soft, mildly distended and tender in the periumbilical region, reduced bowel sounds, no guarding or rebound, no organomegaly noted Extremities: No cyanosis,clubbing or edema. Skin: Warm and Dry. Rectal exam (10/27/24): No external changes, normal anal tone, no fecal impaction, no mass noted Coagulation Studies Laboratory Tests Test 10/28/24 04:07 Prothrombin Time 10.8 SECONDS (9.0-12.0) INR International Normalized Ratio 1.1 INR Coagulation Comments Plan Plan Assessment This is a 49-year-old female patient with a past medical history of alcohol use disorder, hypertension and prediabetes, admitted for poor oral intake, nausea, vomiting, abdominal pain and constipation for 10 days. All symptoms started after a screening colonoscopy, so there is concern for microperforation. She had ketoacidosis secondary to starvation and dehydration, improving after IV fluids and symptomatic medication. Pending abdomen CT with oral and IV contrast. Paralytic ileus after colonoscopy Metabolic acidosis with elevated anion gap - resolved Acute starvation and severe dehydration Symptoms started after colonoscopy Possibly contributed by alcohol use disorder Constipation, normal rectal exam, no signs of SBO CO2 12.8, Cl 92, Anion Gap 31 Lactic acid 1.4 AST 286, ALT 85 , Bilirrubin 1.9, alkaline phosphatase 189 CT abdomen: Moderate volume stool in the colon. Normal appendix. Bilateral perinephric edema / stranding. Correlate for urinary tract infection / pyelonephritis. Severe hepatic steatosis. Hepatomegaly Ordered ABG Received 1000 mL of lactated ringer the ER Started on LR at 125 mL/hr. Plan to reduce once tolerating oral diet. Social service and substance use navigator consulted Mild alcohol withdrawal protocol placed 10/28/24 CO2 23.8, Cl 98, Anion gap [address] with IV and oral contrast given concern for microperforation Ordered CPK for possible rhabdomyolysis LR reduced to 100 mL/hr, patient tolerating oral diet Asymptomatic bacteriuria UA: 5-10 wbc, occult blood moderate Procalcitonin 0.16, C-reactive protein 0.11 Held antibiotics Severe hypokalemia Severe hypophosphatemia Possibly contributing to paralytic ileus and generalized weakness Potassium 2.4, secondary to vomiting and poor oral intake Normal EKG 10/28/2024 Potassium 2.9, phosphorus 0.8 Replacement per protocol Monitor daily Acute kidney injury 2/2 prerenal nephropathy Creatinine 1.01 (baseline 0.77), BUN 6 Continue IV fluids 10/28/24 Creatinine 0.98 today History of hypertension Patient denies any home medication A1c 5.0 Code Status: Full code DVT prophylaxis: Enoxaparin Analgesia/sedation: Morphine Line/tube: PIV GI prophylaxis: Pantoprazole Nutrition: Clear liquid diet Physical therapy: Yes Prognosis: Guarded Disposition: Continue medical management. Pending abdomen CT with IV and oral contrast. Date of Service: Oct 28, 2024 Billing Provider: SHANTE CHAN MD Common Visit Codes: [id number] INP/OBS CARE(HIGH) ANDRIA MIRELES, MYNOR Oct 28, 2024 12:38 SHANTE CHAN MD Oct 29, 2024 06:20
[2024-10-28] MEDS: metoclopramide 5 mg/ml inj IV SCH (14:00)
[2024-10-28 18:00] VITALS: BP 149/100; PULSE 87; RESP 17; TEMP 97.1; O2SAT 98
[2024-10-28 20:00] VITALS: RESP 16; O2SAT 99
[2024-10-28] MEDS: diatr meglu/diatrizoate 30ml oral sol.-(3 dose) bottle PO SCH (20:34)
[2024-10-28] MEDS: HYDROmorphone inj. 0.5 MG/0.5 ML DISP.SYRIN IV PRN (21:33)
[2024-10-28 22:00] VITALS: BP 149/93; PULSE 83; TEMP 98.6; O2SAT 99
[2024-10-29 04:15] LABS: RED CELL DISTRIBUTION WIDTH 17.0 % (11.5-14.5)
[2024-10-29 04:32] LABS: INR 1.1 INR
[2024-10-29 04:50] LABS: CREATININE 0.49 MG/DL (0.40-0.90); PHOSPHORUS 3.2 MG/DL (2.3-4.5); TOTAL CARBON DIOXIDE 34.6 MMOL/L (24-32); eCRCL 99 ML/MIN; eGFR > 90 ML/MIN
[2024-10-29 04:57] LABS: MEAN PLATELET VOLUME 8.3 FL (7.4-10.4)
[2024-10-29 06:43] VITALS: BP 175/100; PULSE 72; RESP 22; TEMP 97.7; O2SAT 99
[2024-10-29] MEDS: potassium Cl 40MEQ/1/2NS 520ml 520 ML IV PRN (07:56)
[2024-10-29] MEDS ORDERED: hydrALAZINE 20mg/ml inj. IV PRN (08:45)
[2024-10-29] MEDS ORDERED: iohexol 300mg/ml 100ml inj. ONE (09:29)
[2024-10-29 10:00] VITALS: BP 157/112; PULSE 88; RESP 16; TEMP 96.9; O2SAT 96
--- NOTE | 2024-10-29 11:14 | RADIOLOGY REPORT ---
Indication: CONCERN PERFORATION S/P COLONOSCOPY N/V, ABD PAIN Technique: CT axial images of the abdomen and pelvis are obtained with intravenous contrast. Coronal and sagittal reformats were obtained. Radiation Dose Information: CTDI volume is 10.3 mGy. Dose-length product is 477 mGy*cm Comparison: CT CT ABDOMEN PELVIS on DOS: 10/27/24 FINDINGS: Lung bases demonstrate no pleural effusion. Right adrenal nodule measuring 1.2 cm. Left adrenal gland unremarkable. Spleen, pancreas unremarkab le. Hepatic steatosis, hepatomegaly. No CT evidence for cholelithiasis. Kidneys demonstrate no hydronephrosis. Stomach is partially distended. Small bowel loops normal in caliber. Moderate volume stool in the colon. No evidence for pneumoperitoneum. No secondary signs for append icitis. Abdominal aortic atherosclerotic disease, tortuosity. Bladder partially distended. No free pelvic fl uid. No inguinal lymphadenopathy. [id number] bilateral sacroiliac degenerative joint disease. Mild thoracolumbar degenerative dis c disease. IMPRESSION: No evidence for bowel obstruction. No evidence for pneumoperitoneum. Hepatomegaly, hepatic steatosis. Atherosclerotic disease. Other findings as described.
[2024-10-29 12:01] VITALS: BP 148/87; PULSE 69
--- NOTE | 2024-10-29 15:47 | DISCHARGE SUMMARY-Residence ---
Discharge Summary Providers to CC Resident Creating Document: ANDRIA MIRELES RES ~ Discharge Summary Admission Diagnosis: Possible SBO Hospital Course DATE OF ADMISSION: 10/27/2024 DATE OF DISCHARGE: 10/30/2024 Chest x-ray 10/27/2024: No acute pulmonary abnormality Abdomen CT without contrast on 10/27/2024 Bilateral perinephric edema / stranding. Correlate for urinary tract infection / pyelonephritis. Severe hepatic steatosis. Hepatomegaly. Abdomen CT with oral and IV contrast on 10/29/2024: Lung bases demonstrate no pleural effusion. Right adrenal nodule measuring 1.2 cm. Left adrenal gland unremarkable. Spleen, pancreas unremarkable. Hepatic steatosis, hepatomegaly. No CT evidence for cholelithiasis. Kidneys demonstrate no hydronephrosis. Stomach is partially distended. Small bowel loops normal in caliber. Moderate volume stool in the colon. No evidence for pneumoperitoneum. No secondary signs for appendicitis. Abdominal aortic atherosclerotic disease, tortuosity. Bladder partially distended. No free pelvic fluid. No inguinal lymphadenopathy. [id number] bilateral sacroiliac degenerative joint disease. Mild thoracolumbar degenerative disc disease. Laboratory Tests Test 10/27/24 15:51 10/27/24 20:03 10/27/24 23:57 10/28/24 02:17 Blood Gas Specimen Type Arterial Blood Gas Puncture Site Rr O2 Saturation 97.5 % Arterial Blood pH (Temp corrected) 7.388 Arterial Blood pCO2 (Temp correct) 22.8 mmHg Arterial Blood pO2 (Temp corrected) 103.7 mmHg Arterial Blood PO2/FiO2 Ratio 5.05 mmHg/% Arterial Blood HCO3 13.5 mmol/L Arterial Blood Base Excess -9.7 mmol/L Arterial Blood Oxyhemoglobin 96.9 % Arterial Blood Carboxyhemoglobin 0.3 % Arterial Blood Methemoglobin 0.3 % Arterial Blood Deoxyhemoglobin 2.5 % Adam Test Positive Blood Gas Hemoglobin 12.6 G/dl Blood Gas Temperature 36.6 Blood Gas Modality Room air FiO2 21.0 mmHg/% Glucometer 126 mg/dl 99 mg/dl Potassium Level 2.9 MMOL/L Test 10/28/24 04:07 10/28/24 07:31 10/28/24 07:36 10/28/24 12:02 White Blood Count 5.3 X10'3 Red Blood Count 3.25 X10'6 Hemoglobin 11.7 g/dl Hematocrit 33.6 % Mean Corpuscular Volume 103.4 FL Mean Corpuscular Hemoglobin 36.2 PG Mean Corpuscular Hemoglobin Concent 35.0 g/dL Red Cell Distribution Width 17.3 % Platelet Count 167 X10'3 Mean Platelet Volume 8.5 FL Neutrophils (%) (Auto) 66.4 % Lymphocytes (%) (Auto) 19.0 % Monocytes (%) (Auto) 12.4 % Eosinophils (%) (Auto) 0.5 % Basophils (%) (Auto) 1.7 % Neutrophils # (Auto) 3.5 X10'3 Lymphocytes # (Auto) 1.0 X10'3 Monocytes # (Auto) 0.7 X10'3 Eosinophils # (Auto) 0.0 X10'3 Basophils # (Auto) 0.1 X10'3 CBC Comment Prothrombin Time 10.8 SECONDS INR International Normalized Ratio 1.1 INR Coagulation Comments Sodium Level 137 MMOL/L Potassium Level 3.2 MMOL/L Chloride Level 98 MMOL/L Carbon Dioxide Level 23.8 MMOL/L Anion Gap 15 Blood Urea Nitrogen 4 MG/DL Creatinine 0.98 MG/DL Estimated GFR/1.73 m2 60 ML/MIN BUN/Creatinine Ratio 4.1 Glucose Level 95 MG/DL Hemoglobin A1c 5.0 % Calcium Level 8.7 MG/DL Phosphorus Level 0.8 MG/DL Magnesium Level 1.9 MG/DL Total Bilirubin 1.4 MG/DL Aspartate Amino Transf (AST/SGOT) 264 U/L Alanine Aminotransferase (ALT/SGPT) 83 U/L Alkaline Phosphatase 142 IU/L Total Creatine Kinase 89 U/L Total Protein 7.7 G/DL Albumin 3.7 G/DL Globulin 4.0 G/DL Albumin/Globulin Ratio 0.9 Amylase Level 38 U/L Chemistry Comments Glucometer 113 mg/dl 151 mg/dl Test 10/28/24 21:08 10/29/24 02:40 10/29/24 04:06 10/29/24 08:36 Glucometer 170 mg/dl 117 mg/dl 187 mg/dl White Blood Count 4.2 X10'3 Red Blood Count 3.20 X10'6 Hemoglobin 11.4 g/dl Hematocrit 32.0 % Mean Corpuscular Volume 100.0 FL Mean Corpuscular Hemoglobin 35.5 PG Mean Corpuscular Hemoglobin Concent 35.5 g/dL Red Cell Distribution Width 17.0 % Platelet Count 178 X10'3 Mean Platelet Volume 8.3 FL Neutrophils (%) (Auto) 57.2 % Lymphocytes (%) (Auto) 24.5 % Monocytes (%) (Auto) 15.4 % Eosinophils (%) (Auto) 0.6 % Basophils (%) (Auto) 2.3 % Neutrophils # (Auto) 2.4 X10'3 Lymphocytes # (Auto) 1.0 X10'3 Monocytes # (Auto) 0.7 X10'3 Eosinophils # (Auto) 0.0 X10'3 Basophils # (Auto) 0.1 X10'3 CBC Comment Prothrombin Time 11.1 SECONDS INR International Normalized Ratio 1.1 INR Coagulation Comments Sodium Level 141 MMOL/L Potassium Level 2.7 MMOL/L Chloride Level 97 MMOL/L Carbon Dioxide Level 34.6 MMOL/L Anion Gap 9 Blood Urea Nitrogen 1 MG/DL Creatinine 0.49 MG/DL Estimated GFR/1.73 m2 > 90 ML/MIN BUN/Creatinine Ratio 2.0 Glucose Level 109 MG/DL Calcium Level 8.9 MG/DL Phosphorus Level 3.2 MG/DL Magnesium Level 1.8 MG/DL Total Bilirubin 1.2 MG/DL Aspartate Amino Transf (AST/SGOT) 198 U/L Alanine Aminotransferase (ALT/SGPT) 72 U/L Alkaline Phosphatase 136 IU/L Total Protein 7.1 G/DL Albumin 3.4 G/DL Globulin 3.7 G/DL Albumin/Globulin Ratio 0.9 Amylase Level 29 U/L Chemistry Comments Test 10/29/24 12:12 Glucometer 133 mg/dl Discharge Diagnosis\Comment: Paralytic ileus after colonoscopy; Metabolic acidosis with elevated anion gap - resolved; Acute starvation and severe dehydration; Asymptomatic bacteriuria; Severe hypokalemia; Severe hypophosphatemia Operations\Procedures: None Consultants: None Complications: None Condition on DC: Stable Discharge Summary: History of present illness This is a 49-year-old female patient with a past medical history of alcohol use disorder, hypertension, presented to the emergency department for nausea and vomiting for the last four days associated with poor oral intake and diffuse abdominal pain. The patient had a screening colonoscopy 10 days ago and didn't have any bowel movement thereafter, but is passing gas. She drinks alcohol daily, last drink three days ago. Patient also complains of weakness and shortness of breath with exertion, denies fever, cough, chest pain or any urinary symptoms reported. Hospital course This is a 49-year-old female patient with a past medical history of alcohol use disorder, hypertension, admitted for poor oral intake, nausea, vomiting, abdominal pain and constipation for 10 days. All symptoms started after a screening colonoscopy, so there was concern for microperforation. She also had ketoacidosis secondary to starvation and dehydration, improving after IV fluids and symptomatic medication. Lab results were also significant for severe hypophosphatemia and hypokalemia, requiring daily replacement. CT abdomen with IV and oral contrast was negative for any acute intra-abdominal pathology. The patient improved clinically during the hospitalization, resume bowel movements, is tolerating oral diet without nausea, vomiting or abdominal pain. Addition ally the patient has a history of untreated hypertension for which we started her on lisinopril 10 mg given multiple elevated blood pressure measures. She is stable to be discharged. Discharge physical exam General: Awake and Alert, no acute distress. HEENT: Conjunctiva pink, Sclera clear, Mucus Membranes dry Neck: Supple without masses and tenderness. Resp: Unlabored. Lungs clear to auscultation bilaterally. Heart: Regular Rate and rhythm, normal S1 and S2 without murmur, rub or gallop. Abdomen: Soft, mildly distended and tender in the periumbilical region, reduced bowel sounds, no guarding or rebound, no organomegaly noted Extremities: No cyanosis,clubbing or edema. Skin: Warm and Dry. Rectal exam (10/27/24): No external changes, normal anal tone, no fecal impaction, no mass noted Discharge medications Lisinopril 10 mg daily Potassium 10 mEq daily for seven days Folic acid, thiamine and multivitamin daily Pantoprazol daily Discharge instructions Follow-up with primary care doctor in 1 week Take lisinopril 10 mg daily Take potassium daily Take folic acid, thiamine and multivitamin daily Take pantoprazol daily Repeat liver enzymes and potassium in 1 week with your PCP Abstain from alcohol Increase water intake Come back to the ER in case of recurrent nausea and vomiting, severe abdominal pain, persistent fever, shortness of breath or any concerning symptoms. *Problems/Diagnosis: (1) Abdominal pain Status: Resolved (2) Hypokalemia Status: Acute (3) Dehydration Status: Acute (4) Alcoholic ketoacidosis Status: Resolved Total Time Spent on D/C: > 30 Minutes Date of Service: Oct 30, 2024 Billing Provider: CARMEN CALDERON MD Common Visit Codes: 87061-DNB/OBS DISCH DAY >30min Problem Qualifiers (1) Abdominal pain: Abdominal location: upper abdomen, unspecified Qualified Codes: R10.10 - Upper abdominal pain, unspecified ANDRIA MIRELES RES Oct 29, 2024 15:47 CARMEN CALDERON MD Oct 30, 2024 17:07
[2024-10-29] MEDS: potassium Cl 20 mEq SR tablet PO PRN ×2 (16:56→23:37)
--- NOTE | 2024-10-29 17:08 | PROGRESS NOTE- Residence ---
Progress Note - Resident Providers to CC Resident Creating Document: ANDRIA MIRELES RES ~ Antibiotic Timeout Antibiotic Ordered?: No Subjective Patient is seen and examined at bedside. Patient is tolerating oral diet, denies nausea, vomiting or abdominal pain. She resumed bowel movements back to baseline. No other symptoms reported. Objective Vital Signs Date Time Temp Pulse Resp B/P (MAP) Pulse Ox O2 Delivery O2 Flow Rate FiO2 10/29/24 12:01 69 148/87 (107) 10/29/24 10:00 96.9 16 96 Room Air 10/29/24 08:00 0.0 Result Diagram: 10/29/24 0406 10/29/24 1605 General: Awake and Alert, no acute distress. HEENT: Conjunctiva pink, Sclera clear, Mucus Membranes dry Neck: Supple without masses and tenderness. Resp: Unlabored. Lungs clear to auscultation bilaterally. Heart: Regular Rate and rhythm, normal S1 and S2 without murmur, rub or gallop. Abdomen: Soft, mildly distended and tender in the periumbilical region, reduced bowel sounds, no guarding or rebound, no organomegaly noted Extremities: No cyanosis,clubbing or edema. Skin: Warm and Dry. Rectal exam (10/27/24): No external changes, normal anal tone, no fecal impaction, no mass noted Coagulation Studies Laboratory Tests Test 10/29/24 04:06 Prothrombin Time 11.1 SECONDS (9.0-12.0) INR International Normalized Ratio 1.1 INR Coagulation Comments Plan Plan Assessment This is a 49-year-old female patient with a past medical history of alcohol use disorder, hypertension and prediabetes, admitted for poor oral intake, nausea, vomiting, abdominal pain and constipation for 10 days. All symptoms started after a screening colonoscopy, so there is concern for microperforation. She had ketoacidosis secondary to starvation and dehydration, improving after IV fluids and symptomatic medication. Paralytic ileus after colonoscopy - resolved Metabolic acidosis with elevated anion gap - resolved Acute starvation and severe dehydration Assessment Symptoms started after colonoscopy Possibly contributed by alcohol use disorder Constipation, normal rectal exam, no signs of SBO CO2 12.8, Cl 92, Anion Gap 31 Lactic acid 1.4 AST 286, ALT 85 , Bilirrubin 1.9, alkaline phosphatase 189 CT abdomen: Moderate volume stool in the colon. Normal appendix. Bilateral perinephric edema / stranding. Correlate for urinary tract infection / pyelonephritis. Severe hepatic steatosis. Hepatomegaly Plan Ordered ABG Received 1000 mL of lactated ringer the ER Started on LR at 125 mL/hr. Plan to reduce once tolerating oral diet. Social service and substance use navigator consulted Mild alcohol withdrawal protocol placed 10/28/24 CO2 23.8, Cl 98, Anion gap [address] with IV and oral contrast given concern for microperforation Ordered CPK for possible rhabdomyolysis LR reduced to 100 mL/hr, patient tolerating oral diet 10/29/[address] negative for any acute intra-abdominal pathology Patient resume bowel movement Significant clinical improvement Asymptomatic bacteriuria Assessment UA: 5-10 wbc, occult blood moderate Procalcitonin 0.16, C-reactive protein 0.11 Plan Held antibiotics Severe hypokalemia Severe hypophosphatemia - resolved Assessment Possibly contributing to paralytic ileus and generalized weakness Potassium 2.4, secondary to vomiting and poor oral intake Normal EKG 10/28/2024 Potassium 2.9, phosphorus 0.8 Replacement per protocol Monitor daily 10/29/2024 Potassium 2.7, normal phosphorus Acute kidney injury 2/2 prerenal nephropathy Creatinine 1.01 (baseline 0.77), BUN 6 Continue IV fluids 10/28/24 Creatinine 0.98 10/29/2024 Creatinine 0.49 History of hypertension Assessment Patient denies any home medication A1c 5.0 Plan Multiple episodes of elevated blood pressure Started on amlodipine 10 mg Code Status: Full code DVT prophylaxis: Enoxaparin Analgesia/sedation: Morphine Line/tube: PIV GI prophylaxis: Pantoprazole Nutrition: Clear liquid diet Physical therapy: Yes Prognosis: Guarded Disposition: Continue medical management. Anticipated discharge tomorrow if normal potassium. Date of Service: Oct 29, 2024 Billing Provider: CARMEN CALDERON MD Common Visit Codes: [id number] INP/OBS CARE(HIGH) ANDRIA MIRELES RES Oct 29, 2024 17:08 CARMEN CALDERON MD Oct 29, 2024 18:28
[2024-10-29 18:00] VITALS: BP 143/95; PULSE 92; RESP 18; TEMP 97.2; O2SAT 97
[2024-10-29 20:00] VITALS: RESP 16; O2SAT 99
[2024-10-29] MEDS: loperamide 2mg capsule PO ONE (20:13)
[2024-10-29 22:35] VITALS: BP 139/94; PULSE 84; RESP 16; TEMP 97.6; O2SAT 99
[2024-10-30 05:06] LABS: MEAN PLATELET VOLUME 8.4 FL (7.4-10.4); RED CELL DISTRIBUTION WIDTH 16.9 % (11.5-14.5)
[2024-10-30 05:18] LABS: INR 1.1 INR
[2024-10-30 06:00] VITALS: BP 159/101; PULSE 83; RESP 16; TEMP 98.2; O2SAT 98
[2024-10-30 06:26] VITALS: RESP 16
[2024-10-30 07:04] LABS: CREATININE 0.55 MG/DL (0.40-0.90); PHOSPHORUS 2.4 MG/DL (2.3-4.5); TOTAL CARBON DIOXIDE 37.2 MMOL/L (24-32); eCRCL 88 ML/MIN; eGFR > 90 ML/MIN
[2024-10-30] MEDS ORDERED: POTA-280 PO (08:07)
[2024-10-30] MEDS ORDERED: LISI10TA27 PO (08:07)
[2024-10-30] MEDS ORDERED: THIA50TA10 PO (09:55)
[2024-10-30] MEDS ORDERED: PANT40TA54 PO (09:55)
[2024-10-30] MEDS ORDERED: FOLI0.4T6 PO (09:55)
== END 2024-10-30 09:20 | disposition home or self-care (01) | DRG 641 ==
LOC: ER 10:43 → ED HOLD 14:47 → EDBEDREQ 15:30 → SUR 3N 16:34
PROVIDERS: ADMIT Internal Medicine; ATTEND Internal Medicine
PROC: BW211ZZ Computerized Tomography (CT Scan) of Abdomen and Pelvis using Low Osmolar Contrast (ICD-10-PCS; principal; 2024-10-29)
DX: E86.0 Dehydration (principal); N17.9 Acute kidney failure, unspecified; E87.6 Hypokalemia; F10.20 Alcohol dependence, uncomplicated; E83.39 Other disorders of phosphorus metabolism; E87.29 Other acidosis; K70.10 Alcoholic hepatitis without ascites; Z90.710 Acquired absence of both cervix and uterus
CPT/HCPCS: 36415; 36600; 71046; 74176; 74177; 80053; 80320; 81001; 81025; 82150; 82550; 82607; 82803; 82948; 83036; 83605; 83690; 83735; 84100; 84132; 84145; 84484; 85018; 85025; 85610; 86140; 87040; 87081; 87088; 93005; 96361; 96365; 96375; 99285; G0378; J0696; J1171; J1650; J2270; J2405; J2470; J3411; J3480; J3490; J7030; J7050; J7120; J7121; Q9963; Q9967